=== PATIENT | female | born 1960 | race Caucasian/White ===

== ENCOUNTER 2018-07-14 07:05 | Day surgery (SDC) | payer BC, SELFPAY ==
[2018-07-14 07:53] VITALS: BP 151/91; PULSE 65; RESP 16; TEMP 36.6; O2SAT 100; BMI 37.8
--- NOTE | 2018-07-14 08:00 | COLBX_PTH ---
PATIENT: ADRY HENRY LOC: EN U#:[id number] AGE/SX: 57/F ROOM: RE07/14/[address]: Dr. Dmitry Holden MD : 1960 BED: DIS: 07/14/2018 SPEC #: [id number] RECD: 07/14/18 10:23 STATUS: ANN MARIE KATE #: [id number] ANALILIA: 07/14/18 08:[address]: Dmitry Holden DEPT: SURGICAL PATHOLOGY RECD BY: Hugo Kirkland ENTERED: 07/14/18 10:49 SP TYPE: COLON BX OTHR DR: Dr. Rohini Santos MD Tissues: Sigmoid colon biopsy Procedures: Surgery Specimen Level IV HEADER OPERATION: Colonoscopy PRE-OP DIAGNOSIS: Screening TISSUE SUBMITTED: Polyp of sigmoid colon MICROSCOPIC DIAGNOSIS Sigmoid colon polyp, biopsy: Focal hyperplastic change. AM:felicita 07/15/18 MICROSCOPIC DESCRIPTION Slides are reviewed. GROSS DESCRIPTION Received in fixative is one container labeled with the patient's name and designated polyp of sigmoid colon. The specimen consists of a rader-pink polyp measuring 0.5 x 0.5 x 0.2 cm. Also present in the container is a minute fragment of rader soft tissue measuring 0.1 cm in greatest dimension. The specimen is totally submitted in one cassette. / SJ:felicita 07/14/18 TC:5 CPT: 95038
[2018-07-14 08:25] VITALS: BP 123/78; BP 151/91; PULSE 89; RESP 18; TEMP 36.9; O2SAT 95
--- NOTE | 2018-07-14 08:26 | OP.ENDO_ITS ---
Patient Name: Zhanna Flores Procedure Date: 07/14/2018 8:02 AM Date of : 1960 Age: 57 Procedure: Colonoscopy Indications: Screening for colorectal malignant neoplasm Providers: Dmitry Holden MD Medicines: See the Anesthesia note for documentation of the administered medications Patient Profile: This is a 57 year old female. Refer to note in patient chart for documentation of history and physical. Last Colonoscopy: none. The patient's first colonoscopy is today. Complications: No immediate complications. Procedure: Pre-Anesthesia Assessment: - Prior to the procedure, a History and Physical was performed, and patient medications and allergies were reviewed. The patient's tolerance of previous anesthesia was also reviewed. The risks and benefits of the procedure and the sedation options and risks were discussed with the patient. All questions were answered, and informed consent was obtained. Prior Anticoagulants: The patient has taken no previous anticoagulant or antiplatelet agents. ASA Grade Assessment: II - A patient with mild systemic disease. After reviewing the risks and benefits, the patient was deemed in satisfactory condition to undergo the procedure. After I obtained informed consent, the scope was passed under direct vision. Throughout the procedure, the patient's blood pressure, pulse, and oxygen saturations were monitored continuously. The adult colonoscope was introduced through the anus and advanced to the cecum, identified by appendiceal orifice and ileocecal valve. The colonoscopy was performed with moderate difficulty due to patient coughing. The patient tolerated the procedure fairly well. The quality of the bowel preparation was good. Scope In: 8:08:57 AM Scope Withdrawal Time 0 hours 6 minutes 56 seconds Scope Out: 8:21:09 AM Total Procedure Duration Time 0 hours 12 minutes 12 seconds Findings: A 5 mm polyp was found in the sigmoid colon. The polyp was sessile. The polyp was removed with a hot snare. Resection and retrieval were complete. Multiple small-mouthed diverticula were found in the sigmoid colon and descending colon. The exam was otherwise without abnormality. Impression: - One 5 mm polyp in the sigmoid colon, removed with a hot snare. Resected and retrieved. - Diverticulosis in the sigmoid colon and in the descending colon. - The examination was otherwise normal. Recommendation: - Discharge patient to home. - Resume previous diet. - Continue present medications. - Await pathology results. - Repeat colonoscopy in 3 years for surveillance. - Return to my office in 1 week. Procedure Code(s): --- Professional --- 09312, Colonoscopy, flexible; with removal of tumor(s), polyp(s), or other lesion(s) by snare technique Diagnosis Code(s): --- Professional --- Z12.11, Encounter for screening for malignant neoplasm of colon D12.5, Benign neoplasm of sigmoid colon K57.30, Diverticulosis of large intestine without perforation or abscess without bleeding CPT copyright 2017 [employer]. All rights reserved. The codes documented in this report are preliminary and upon water treatment plant supervisor review may be revised to meet current compliance requirements. MD Dmitry Taylor MD 07/14/2018 8:25:44 AM This report has been signed electronically. Number of Addenda: 0 Note Initiated On: 07/14/2018 8:02 AM
--- NOTE | 2018-07-14 08:26 | PCM.HP.STD ---
Problem List (1) Screen for colon cancer Status: Acute History of Present Illness Date of Admission: 07/14/18 The patient is a 57 year old F who presents for screening colonoscopy Past Medical History Allergies latex Adverse Reaction (Verified 07/14/18 07:33) Rash Smoking Status: Never smoker - *Family History Maternal History Items: No pertinent history Review of Systems Cardiovascular: Denies: Chest Pain, Chest Pressure, Chest Tightness, Palpitations Respiratory: Denies: Cough, Hemoptysis, Shortness of breath at rest, Shortness of breath upon exertion, Wheezing Gastrointestinal: Denies: Abdominal Pain, Constipation, Diarrhea, Hematemesis, Nausea, Melena, Vomiting VTE Information - Inpt Only VTE Present on Admission: No VTE Mechan Device Prophylaxis: None VTE Pharm Prophylaxis ordered?: No Reason prophylaxis not ordered:: Treatment Not Indicated Patient Problems: Active and Suspected Problems Screen for colon cancer (Acute) - Physical Exam Lungs: Clear to auscultation Cardiovascular: Regular rate, Regular Rhythm, No murmurs Abdomen: Bowel Sounds Present, Soft, Non Tender, Non-Distended Vital Signs Temp Pulse Resp BP Pulse Ox 97.8 F 65 16 151/91 H 100 07/14/18 07:53 07/14/18 07:53 07/14/18 07:53 07/14/18 07:53 07/14/18 07:53 Oxygen Delivery Method Room Air Weight: 241 lb 13.553 oz Body Mass Index (BMI) 37.8 Assessment/Plan All Active Problems Screen for colon cancer (Acute) My plan is to perform a colonoscopy.
[2018-07-14 08:30] VITALS: BP 118/74; BP 151/91; PULSE 82; RESP 18; O2SAT 94
[2018-07-14 08:35] VITALS: BP 119/73; BP 151/91; PULSE 88; RESP 18; O2SAT 96
[2018-07-14 08:40] VITALS: BP 119/84; BP 151/91; PULSE 73; RESP 18; TEMP 36.4; O2SAT 100
[2018-07-14 08:52] VITALS: BP 151/91
== END 2018-07-14 09:10 | disposition home or self-care (01) ==
LOC: EN 07:13 → AC 07:13
PROVIDERS: Family Provider Family Medicine; PCP Family Medicine; Referring Provider Surgery; Visit Provider Surgery
PROC: 0DJD8ZZ Inspection of Lower Intestinal Tract, Via Natural or Artificial Opening Endoscopic (ICD-10-PCS; CPT 45378; principal; 2018-07-14 07:55)
DX: Z12.11 Encounter for screening for malignant neoplasm of colon (principal); D12.5 Benign neoplasm of sigmoid colon; K57.30 Diverticulosis of large intestine without perforation or abscess without bleeding
CPT/HCPCS: 45385; 88305; J7120; J2405

== ENCOUNTER 2019-06-15 06:57 | Day surgery (SDC) | payer BC, SELFPAY ==
[2019-05-31 09:27] VITALS: BMI 37.8
--- NOTE | 2019-05-31 10:44 | HP_ITS ---
Intake Vital Signs 05/31/19 Body Mass Index (BMI) 37.8 05/31/19 Height 5 ft 8 in 05/31/19 Weight: 235 lb 05/31/19 Body Mass Index (BMI) 35.7 05/31/19 Blood Pressure 143/90 H 05/31/19 Blood Pressure Location Rt brachial 05/31/19 Blood Pressure Position Sitting 05/31/19 Respiratory Rate 18 05/31/19 Pulse Rate 62 05/31/19 Pulse Source Monitor 05/31/19 Temperature 98.0 F 05/31/19 Temperature Source Oral 05/31/19 Pulse Ox 97 05/31/19 Oxygen Delivery Method room air 05/25/19 Body Mass Index (BMI) 37.8 Intake Visit Reasons: Gastroesophageal reflux disease (GERD) Chief Complaint: GERD Content Strategy Lead Required: No Is patient in pain?: No Allergies latex Adverse Reaction (Verified 05/31/19 09:26) Rash Medications NK 07/29/18 [History Confirmed 05/31/19] Is last menstrual period known: No Post menopausal: Yes Patient : No PFSH Medical History Screen for colon cancer (Acute) GERD (gastroesophageal reflux disease) (Acute) History of hysterectomy (Acute) Surgical History History of (Acute) History of bilateral carpal tunnel release (Acute) History of left knee replacement (Acute) History of tonsillectomy and adenoidectomy (Acute) S/P colonoscopy (Acute ~07/14/18) Family History Sister Asthma Breast cancer Father Bleeding disorder Heart disease Mother Cancer Heart disease Hypertension Social History (Updated 05/31/19 @ 10:44 by Dmitry Holden MD) Smoking Status: Never smoker alcohol intake: never substance use type: does not use HPI HPI HPI: ADRY HENRY, is a 58 F who presents to the office today for HPI HPI Surgical H&P: Yes HPI: ADRY HENRY, is a 58 F who presents to the office today for Evaluation of heartburn. I originally saw her back in July after she underwent a colonoscopy. We discussed the fact that she was having heartburn for many months particularly after eating spicy foods. She took ycbs-[id number] PPIs double dose since then and has had no appreciable change in her reflux of symptoms. The only time that she does not have reflux of symptoms is when she eats a very bland diet and no more than 2 cups at a time. She states that her symptoms are worse when she tries to bend over after she is eaten spicy foods where food regurgitates and starts her coughing up a lot of phlegm. ROS General General: Yes weight change; no appetite, fatigue, colon cancer, breast cancer or weakness HEENT HEENT: No difficulty swallowing, eye injury, eye surgery, swollen glands or hoarseness Endo Endocrine: No thyroid disease, diabetes mellitus, thyroid cancer, Hair loss, heat intolerance or cold intolerance Skin Skin: No rash or changing moles Breast Breast: No left breast lump, right breast lump, nipple discharge, breast pain, abnormal mammogram, abnormal US or breast enlargement Musc Musculoskeletal: No back problems, arthritis, rheumatoid arthritis, gout or joint pain Cardio Cardiovascular: No murmur, pacemaker, heart disease, atrial fibrillation, high blood pressure, heart attack, heart stent, palpitations, shortness of breat with exertion or chest pain Psych Psychiatric: No depression, anxiety or hearing voices Resp Respiratory: No shortness of breath, No sleep apnea, Yes cough, No COPD, No asthma, No emphysema, No wheezing Gastro Gastrointestinal: No abdominal pain, No nausea or vomiting, No diarrhea, No constipation, No blood in stool, Yes acid reflux, No hemorrhoids, No ulcers, No gallbladder problem, No black,tarry stools Hematologic: No blood thinners, No blood disorders, No bleeding, No anemia, No blood clots Neuro Neurologic: No system reviewed and no additional complaints, except as docu, No as per HPI, No abnormal walking, No abnormal hearing, No abnormal movements, No abnormal speech, No behavioral changes, No burning sensations, No confusion, No seizure-like activity, No unsteadiness, No dizziness, No localized weakness, No frequent falls, No headache(s), No lack of coordination, No loss of vision, No memory loss, No numbness, No other visual disturbances, No radiating pain, No restless legs, No sensory deficit, No fainting, No tingling, No tremor(s), No weakness, No other Exam Const General: no acute distress, well developed, well hydrated Orientation: oriented to person, oriented to place, oriented to time [facility] Head: normocephalic, atraumatic Ears: external ears normal Mouth: moist mucous membranes Eyes Sclera: sclerae normal Pupils: normal by confrontation Neck Neck: no lymphadenopathy noted Neck mass: No Thyroid: thyroid normal, symmetrical Chest Chest palpation & inspection: normal inspection of the chest Breast Palpation: No nipple discharge Resp Effort & Inspection: normal respiratory effort Auscultation: clear to auscultation bilaterally Percussion: percussion normal Cardio Rate: regular rate Rhythm: regular rhythm Heart Sounds: no murmurs GI Palpation: soft, no hepatosplenomegaly, no masses, nontender Rectal Exam: other Other: Rectal exam deferred. Extrem General: normal to inspection, no clubbing, cyanosis or edema Assessment & Plan 1. Gastroesophageal reflux disease, esophagitis presence not specified K21.9 Plan I have discussed the above with the patient. I have offered the patient esophagogastroduodenoscopy With 48-hour pH probe for evaluation. I have explained the risks/benefits of the procedure and described the procedure. I have discussed the risks with the patient, including but not limited to: infection, bleeding, perforation of the GI tract requiring emergency surgery, inability to complete the procedure, injury to any internal organs, complications of anesthesia, etc. - the patient understands and agrees to proceed. I have answered all the patient's questions to the patient's satisfaction and the patient has no further questions. The patient has been given instructions for the colon cleansing preparation. Coding Level of Care Code Off vis,est,level 3 Diagnoses Gastroesophageal reflux disease, esophagitis presence not specified K21.9 ??Esophagitis presence: esophagitis presence not specified 05/31/19 1045 <Electronically signed by Dmitry urena MD> Date _ Dmitry Holden MD I have re-examined the patient. There are no clinical changes since date of exam.
[2019-06-15] VITALS (7 sets, daily range): BP systolic 113–135; BP diastolic 76–82; PULSE 70–95; RESP 16–20; TEMP 36.8–37.2; O2SAT 96–100; BMI 36.5
[2019-06-15] MEDS: Lactated Ringers 1,000 ML 100 ML IV (07:45)
--- NOTE | 2019-06-15 08:41 | OP.ENDO_ITS ---
06/15/2019 Rohini Santos Md Re : Upper GI endoscopy procedure for Zhanna Flores Dear Danielle This procedure was performed on Saturday, June 15, 2019. My impressions and recommendations are as follows: Impressions : - Z-line regular, 38 cm from the incisors. - Normal stomach. No specimens collected. - Normal examined duodenum. No specimens collected. - The LEON pH capsule was deployed. Recommendations : - Discharge patient to home. - Resume previous diet. - Continue present medications. - Repeat upper endoscopy (date not yet determined) to evaluate the response to therapy. - Return to my office in 1 week. My findings are described in the full procedure note, which is enclosed. If I can be of further assistance, please feel free to contact me at Doctor phone number(s): , Fax: [phone], Work: . Sincerely, MD Dmitry Taylor MD 06/15/2019 8:40:48 AM This report has been signed electronically.
== END 2019-06-15 09:25 | disposition home or self-care (01) ==
LOC: EN 06:57 → AC 06:58
PROVIDERS: Family Provider Family Medicine; PCP Family Medicine; Referring Provider Surgery; Visit Provider Surgery
PROC: (CPT 43235; principal; 2019-06-15 07:55)
DX: K21.9 Gastro-esophageal reflux disease without esophagitis (principal); Z78.0 Asymptomatic menopausal state; Z90.710 Acquired absence of both cervix and uterus
CPT/HCPCS: 43235; 91035; J7120; J2405

== ENCOUNTER 2019-08-04 07:49 | Day surgery (SDC) | payer BC, SELFPAY ==
--- NOTE | 2019-05-31 10:44 | HP_ITS ---
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 Is patient in pain?: No Allergies latex Adverse Reaction (Verified 05/31/19 09:26) Rash Medications NK 07/29/18 [History Confirmed 05/31/19] Is last menstrual period known: No Post menopausal: Yes Patient : No PFSH Medical History Screen for colon cancer (Acute) GERD (gastroesophageal reflux disease) (Acute) History of hysterectomy (Acute) Surgical History History of (Acute) History of bilateral carpal tunnel release (Acute) History of left knee replacement (Acute) History of tonsillectomy and adenoidectomy (Acute) S/P colonoscopy (Acute ~07/14/18) Family History Sister Asthma Breast cancer Father Bleeding disorder Heart disease Mother Cancer Heart disease Hypertension Social History (Updated 05/31/19 @ 10:44 by Dmitry Holden MD) Smoking Status: Never smoker alcohol intake: never substance use type: does not use HPI HPI HPI: ADRY HENRY, is a 58 F who presents to the office today for HPI HPI Surgical H&P: Yes HPI: ADRY HENRY, is a 58 F who presents to the office today for Evaluation of heartburn. I originally saw her back in July after she underwent a colonoscopy. We discussed the fact that she was having heartburn for many months particularly after eating spicy foods. She took ghwu-[id number]-[id number] PPIs double dose since then and has had no appreciable change in her reflux of symptoms. The only time that she does not have reflux of symptoms is when she eats a very bland diet and no more than 2 cups at a time. She states that her symptoms are worse when she tries to bend over after she is eaten spicy foods where food regurgitates and starts her coughing up a lot of phlegm. ROS General General: Yes weight change; no appetite, fatigue, colon cancer, breast cancer or weakness HEENT HEENT: No difficulty swallowing, eye injury, eye surgery, swollen glands or hoarseness Endo Endocrine: No thyroid disease, diabetes mellitus, thyroid cancer, Hair loss, heat intolerance or cold intolerance Skin Skin: No rash or changing moles Breast Breast: No left breast lump, right breast lump, nipple discharge, breast pain, abnormal mammogram, abnormal US or breast enlargement Musc Musculoskeletal: No back problems, arthritis, rheumatoid arthritis, gout or joint pain Cardio Cardiovascular: No murmur, pacemaker, heart disease, atrial fibrillation, high blood pressure, heart attack, heart stent, palpitations, shortness of breat with exertion or chest pain Psych Psychiatric: No depression, anxiety or hearing voices Resp Respiratory: No shortness of breath, No sleep apnea, Yes cough, No COPD, No asthma, No emphysema, No wheezing Gastro Gastrointestinal: No abdominal pain, No nausea or vomiting, No diarrhea, No constipation, No blood in stool, Yes acid reflux, No hemorrhoids, No ulcers, No gallbladder problem, No black,tarry stools Hematologic: No blood thinners, No blood disorders, No bleeding, No anemia, No blood clots Neuro Neurologic: No system reviewed and no additional complaints, except as docu, No as per HPI, No abnormal walking, No abnormal hearing, No abnormal movements, No abnormal speech, No behavioral changes, No burning sensations, No confusion, No seizure-like activity, No unsteadiness, No dizziness, No localized weakness, No frequent falls, No headache(s), No lack of coordination, No loss of vision, No memory loss, No numbness, No other visual disturbances, No radiating pain, No restless legs, No sensory deficit, No fainting, No tingling, No tremor(s), No weakness, No other Exam Const General: no acute distress, well developed, well hydrated Orientation: oriented to person, oriented to place, oriented to time [facility] Head: normocephalic, atraumatic Ears: external ears normal Mouth: moist mucous membranes Eyes Sclera: sclerae normal Pupils: normal by confrontation Neck Neck: no lymphadenopathy noted Neck mass: No Thyroid: thyroid normal, symmetrical Chest Chest palpation & inspection: normal inspection of the chest Breast Palpation: No nipple discharge Resp Effort & Inspection: normal respiratory effort Auscultation: clear to auscultation bilaterally Percussion: percussion normal Cardio Rate: regular rate Rhythm: regular rhythm Heart Sounds: no murmurs GI Palpation: soft, no hepatosplenomegaly, no masses, nontender Rectal Exam: other Other: Rectal exam deferred. Extrem General: normal to inspection, no clubbing, cyanosis or edema Assessment & Plan 1. Gastroesophageal reflux disease, esophagitis presence not specified K21.9 Plan I have discussed the above with the patient. I have offered the patient esophagogastroduodenoscopy With 48-hour pH probe for evaluation. I have explained the risks/benefits of the procedure and described the procedure. I have discussed the risks with the patient, including but not limited to: infection, bleeding, perforation of the GI tract requiring emergency surgery, inability to complete the procedure, injury to any internal organs, complications of anesthesia, etc. - the patient understands and agrees to proceed. I have answered all the patient's questions to the patient's satisfaction and the patient has no further questions. The patient has been given instructions for the colon cleansing preparation. Coding Level of Care Code Off vis,est,level 3 Diagnoses Gastroesophageal reflux disease, esophagitis presence not specified K21.9 ??Esophagitis presence: esophagitis presence not specified 05/31/19 1045 <Electronically signed by Dmitry urena MD> Date _ Dmitry Holden MD
[2019-06-15 07:29] VITALS: BMI 36.5
[2019-08-04 08:13] VITALS: BP 143/84; PULSE 72; RESP 16; TEMP 36.6; O2SAT 100
== END 2019-08-04 08:46 | disposition home or self-care (01) ==
LOC: EN 07:49
PROVIDERS: Surgery; Family Provider Family Medicine; PCP Family Medicine; Referring Provider Family Medicine; Visit Provider Surgery
PROC: F00ZJWZ Instrumental Swallowing and Oral Function Assessment using Swallowing Equipment (ICD-10-PCS; CPT 43235; principal; 2019-08-04 07:55)
DX: K21.0 Gastro-esophageal reflux disease with esophagitis (principal)
CPT/HCPCS: 91010; 91013

== ENCOUNTER 2020-02-28 09:55 | Observation (INO) | payer BC, SELFPAY ==
[2019-10-06 07:57] VITALS: BMI 34.4
--- NOTE | 2020-02-21 01:27 | HP_ITS ---
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 Required: No Is patient in pain?: No Allergies latex Adverse Reaction (Verified 02/21/20 12:59) Rash Medications esomeprazole magnesium 20 mg capsule,delayed release 20 mg PO BID cap 02/21/20 [History Confirmed 02/21/20] PFS Medical History Gastroesophageal reflux disease due to diaphragmatic hernia (Acute) Screen for colon cancer (Acute) GERD (gastroesophageal reflux disease) (Acute) Surgical History History of (Acute) History of bilateral carpal tunnel release (Acute) History of hysterectomy (Acute) History of left knee replacement (Acute) History of tonsillectomy and adenoidectomy (Acute) S/P colonoscopy (Acute ~07/14/18) history EGD with 48 hour PH probe (Acute ~06/15/19) Family History Sister Asthma Breast cancer Father Bleeding disorder Heart disease Mother Cancer Heart disease Hypertension Social History (Updated 02/21/20 @ 13:27 by Jojo Brantley PA-C) Smoking Status: Never smoker alcohol intake: never substance use type: does not use HPI HPI HPI: ZHANNA HENRY is a 59 F who presents to the office today for HPI HPI Surgical H&P: Yes HPI: ZHANNA HENRY is a 59 F who presents to the office today for an update history and physical. Patient denies fever, cough, shortness of breath. She denies chest pain. She has never been evaluated by a deaf teacher. She denies previous complications or side effects from anesthesia. Patient denies recent changes in health since her last visit visit with our office. She notes previous and laparoscopic hysterectomy as far as abdominal surgeries. Patient's previous history per Dr. Hernandez: ZHANNA HENRY, is a 59 F who presents to the office today for Surgical consultation regarding intractable gastroesophageal reflux disease and the need for repair Of a hiatal hernia with reflux procedure. The patient is referred by . The patient was seen below with the following concerns. She has had significant gastroesophageal reflux disease for at least 2 years. She has not had any abdominal surgery other than 2 prior C-sections. She has undergone upper endoscopy and pH probe and esophageal manometry.It is of note that the DeMeester score was 23.8. The manometry showed 10 swallows analyzed. The patient had several swallows with incomplete bolus clearance. 20% were weak. 20% were ineffective. LES basal tone and relaxing tension tone were normal HPI: ZHANNA HENRY, is a 58 F who presents to the office today for Evaluation of heartburn. I originally saw her back in July after she underwent a colonoscopy. We discussed the fact that she was having heartburn for many months particularly after eating spicy foods. She took oypd-bxu-ohqpgvz PPIs double dose since then and has had no appreciable change in her reflux of symptoms. The only time that she does not have reflux of symptoms is when she eats a very bland diet and no more than 2 cups at a time. [facility] Medical Records Department [address] [place] [id number] Operative Report - Endoscopy MR#: [id number] Name:ZHANNA HENRY [facility] #:[id number] : [id number]: Dmitry Holden MD PCP:Rohini Santos MD Status:[place] [facility] [place]15/[place] Rohini Santos Md Re : Upper GI endoscopy procedure for hZanna Henry Dear Danielle This procedure was performed on Thursday, June 15, 2019. My impressions and recommendations are as follows: Impressions : - Z-line regular, 38 cm from the incisors. - Normal stomach. No specimens collected. - Normal examined duodenum. No specimens collected. - The LEON pH capsule was deployed. Recommendations : - Discharge patient to home. - Resume previous diet. - Continue present medications. - Repeat upper endoscopy (date not yet determined) to evaluate the response to therapy. - Return to my office in 1 week. My findings are described in the full procedure note, which is enclosed. If I can be of further assistance, please feel free to contact me at Doctor phone number(s): , Fax: [phone], Work: . Sincerely, MD Dmitry Taylor MD 06/15/2019 8:40:48 AM This report has been signed electronically. 06/15/19 0841 Date Dmitry Holden MD ROS General General: Yes weight change; no appetite, fatigue, colon cancer, breast cancer or weakness HEENT HEENT: No difficulty swallowing, eye injury, eye surgery, swollen glands or hoarseness Endo Endocrine: No thyroid disease, diabetes mellitus, thyroid cancer, Hair loss, heat intolerance or cold intolerance Skin Skin: No rash or changing moles Breast Breast: No left breast lump, right breast lump, nipple discharge, breast pain, abnormal mammogram, abnormal US or breast enlargement Musc Musculoskeletal: No back problems, arthritis, rheumatoid arthritis, gout or joint pain Cardio Cardiovascular: No murmur, pacemaker, heart disease, atrial fibrillation, high blood pressure, heart attack, heart stent, palpitations, shortness of breat with exertion or chest pain Psych Psychiatric: No depression, anxiety or hearing voices Resp Respiratory: No shortness of breath, No sleep apnea, Yes cough, No COPD, No asthma, No emphysema, No wheezing Gastro Gastrointestinal: No abdominal pain, No nausea or vomiting, No diarrhea, No constipation, No blood in stool, Yes acid reflux, No hemorrhoids, No ulcers, No gallbladder problem, No black,tarry stools Hematologic: No blood thinners, No blood disorders, No bleeding, No anemia, No blood clots Neuro Neurologic: No weakness Exam Const General: cooperative, healthy appearing, comfortable, no acute distress HENMI Head: normal to inspection Eyes General: appearance normal, both eyes and all related structures Neck Neck: normal visual inspection Neck mass: No Chest Breast Palpation: No nipple discharge Resp Effort & Inspection: normal respiratory effort Auscultation: clear to auscultation bilaterally Cardio Rate: regular rate Rhythm: regular rhythm Heart Sounds: no murmurs GI Inspection: normal to inspection Palpation: soft Auscultation: normal bowel sounds Skin General: no rashes or lesions noted Neuro General: no focal motor deficits, CN's II-XI intact bilaterally Extrem General: normal to inspection Psych Appearance: grossly normal Affect: normal affect Assessment & Plan Problems 1. Gastroesophageal reflux disease due to diaphragmatic hernia K21.9; K44.[address] Hernandez will plan to perform a laparoscopic toupee procedure. Procedure details, risks and benefits were reviewed with the patient. Patient has had the opportunity to ask and have questions answered. Patient was also provided post- operative instructions and post-operative diet instructions. Instructions were reviewed with the patient. PAT contacted the patient today with testing and COVID testing instructions. Coding Level of Care Code No Charge Diagnoses Gastroesophageal reflux disease due to diaphragmatic hernia K21.9; K44.9 Comment Update H&P 02/21/20 9268 <Electronically signed by Jojo briggs PA-C> Date _ Jojo Brantley PA-C
[2020-02-21 13:01] VITALS: BMI 36.5
--- NOTE | 2020-02-21 13:54 | EKG12_ITS ---
Test Reason : PRE-OP Blood Pressure : / mmHG Vent. Rate : 068 BPM Atrial Rate : 068 BPM P-R Int : 174 ms QRS Dur : 092 ms QT Int : 440 ms P-R-T Axes : 026 012 083 degrees QTc Int : 467 ms Normal sinus rhythm Low voltage QRS (Limb Leads) Poor R wave progression Confirmed by EARLENE FISCHER, BIJAN ([id number]), editor managing newspaper SALVADOR GRAY ([id number]) on 02/22/2020 1:07:22 PM Referred By: Priyank Hernandez Confirmed By:BIJAN HENAO MD
[2020-02-21 14:16] LABS: Hematocrit 38.2 % (37-47); Hemoglobin 12.7 g/dL (12.0-15.0); Mean Corp Hgb Conc 33.2 g/dL (32-36); Mean Corpuscular Hgb 29.9 pg (27.0-32.0); Mean Corpuscular Volume 89.9 fL (81-99); Mean Platelet Vol. 12.8 fl (6.2-12.0); Platelet Count 268 K/mm3 (150-450); RBC Distribution Width CV 12.7 % (11.6-14.6); RBC Distribution Width SD 41.5 fl (35.1-43.9); Red Blood Count 4.25 M/mm3 (4.2-5.4); White Blood Count 7.5 K/mm3 (4.4-11.0)
[2020-02-21 15:13] LABS: Anion Gap 5 (5-15); BUN 20 mg/dL (7-18); BUN/Creat Ratio 21.4 RATIO (10-20); Chloride 109 mmol/L (98-107); Creatinine, Serum 0.93 mg/dL (0.55-1.02); EST Glomerular Filtration Rate 65 mL/min (>60); Est Glom Filt Rate - Afr Amer 79 mL/min (>60); Glucose 110 mg/dL (74-106); Potassium 4.1 mmol/L (3.5-5.1); Sodium Level 139 mmol/L (136-145)
[2020-02-28] VITALS (12 sets, daily range): BP systolic 118–135; BP diastolic 65–85; PULSE 53–81; RESP 15–18; TEMP 36.2–37.8; O2SAT 93–100; BMI 37.5
[2020-02-28] MEDS: Lactated Ringers 1,000 ML 100 ML IV ×2 (05:59→09:40)
--- NOTE | 2020-02-28 06:35 | PCM.HP.BLA ---
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 Required: No Is patient in pain?: No Allergies latex Adverse Reaction (Verified 02/21/20 12:59) Rash Medications esomeprazole magnesium 20 mg capsule,delayed release 20 mg PO BID cap 02/21/20 [History Confirmed 02/21/20] [facility] Medical History Gastroesophageal reflux disease due to diaphragmatic hernia (Acute) Screen for colon cancer (Acute) GERD (gastroesophageal reflux disease) (Acute) Surgical History History of (Acute) History of bilateral carpal tunnel release (Acute) History of hysterectomy (Acute) History of left knee replacement (Acute) History of tonsillectomy and adenoidectomy (Acute) S/P colonoscopy (Acute ~07/14/18) history EGD with 48 hour PH probe (Acute ~06/15/19) Family History Sister Asthma Breast cancer Father Bleeding disorder Heart disease Mother Cancer Heart disease Hypertension Social History (Updated 02/21/20 @ 13:27 by Jojo Brantley PA-C) Smoking Status: Never smoker alcohol intake: never substance use type: does not use HPI HPI HPI: ZHANNA HENRY, is a 59 F who presents to the office today for HPI HPI Surgical H&P: Yes HPI: ZHANNA HENRY, is a 59 F who presents to the office today for an update history and physical. Patient denies fever, cough, shortness of breath. She denies chest pain. She has never been evaluated by a ethylene plant helper. She denies previous complications or side effects from anesthesia. Patient denies recent changes in health since her last visit visit with our office. She notes previous and laparoscopic hysterectomy as far as abdominal surgeries. Patient's previous history per Dr. Hernandez: ZHANNA HENRY, is a 59 F who presents to the office today for Surgical consultation regarding intractable gastroesophageal reflux disease and the need for repair Of a hiatal hernia with reflux procedure. The patient is referred by . The patient was seen below with the following concerns. She has had significant gastroesophageal reflux disease for at least 2 years. She has not had any abdominal surgery other than 2 prior C-sections. She has undergone upper endoscopy and pH probe and esophageal manometry.It is of note that the DeMeester score was 23.8. The manometry showed 10 swallows analyzed. The patient had several swallows with incomplete bolus clearance. 20% were weak. 20% were ineffective. LES basal tone and relaxing tension tone were normal HPI: ZHANNA HENRY, is a 58 F who presents to the office today for Evaluation of heartburn. I originally saw her back in July after she underwent a colonoscopy. We discussed the fact that she was having heartburn for many months particularly after eating spicy foods. She took demm-slf-auwqzhn PPIs double dose since then and has had no appreciable change in her reflux of symptoms. The only time that she does not have reflux of symptoms is when she eats a very bland diet and no more than 2 cups at a time. [facility] Medical Records Department [address] [place] [address] Operative Report - Endoscopy MR#: [id number] Name:ZHANNA HENRY CRep #:[id number] : [id number]: Dmitry Holden MD PCP:Rohini Santos MD Status:REG [facility] [place] 06/15/2019 Rohini Santos Md Re : Upper GI endoscopy procedure for Zhanna Henry Dear Danielle This procedure was performed on Thursday, June 15, 2019. My impressions and recommendations are as follows: Impressions : - Z-line regular, 38 cm from the incisors. - Normal stomach. No specimens collected. - Normal examined duodenum. No specimens collected. - The LEON pH capsule was deployed. Recommendations : - Discharge patient to home. - Resume previous diet. - Continue present medications. - Repeat upper endoscopy (date not yet determined) to evaluate the response to therapy. - Return to my office in 1 week. My findings are described in the full procedure note, which is enclosed. If I can be of further assistance, please feel free to contact me at Doctor phone number(s): , Fax: [phone], Work: . Sincerely, MD Dmitry Taylor MD 06/15/2019 8:40:48 AM This report has been signed electronically. 06/15/19 0841 Date Dmitry Holden MD ROS General General: Yes weight change; no appetite, fatigue, colon cancer, breast cancer or weakness HEENT HEENT: No difficulty swallowing, eye injury, eye surgery, swollen glands or hoarseness Endo Endocrine: No thyroid disease, diabetes mellitus, thyroid cancer, Hair loss, heat intolerance or cold intolerance Skin Skin: No rash or changing moles Breast Breast: No left breast lump, right breast lump, nipple discharge, breast pain, abnormal mammogram, abnormal US or breast enlargement Musc Musculoskeletal: No back problems, arthritis, rheumatoid arthritis, gout or joint pain Cardio Cardiovascular: No murmur, pacemaker, heart disease, atrial fibrillation, high blood pressure, heart attack, heart stent, palpitations, shortness of breat with exertion or chest pain Psych Psychiatric: No depression, anxiety or hearing voices Resp Respiratory: No shortness of breath, No sleep apnea, Yes cough, No COPD, No asthma, No emphysema, No wheezing Gastro Gastrointestinal: No abdominal pain, No nausea or vomiting, No diarrhea, No constipation, No blood in stool, Yes acid reflux, No hemorrhoids, No ulcers, No gallbladder problem, No black,tarry stools Hematologic: No blood thinners, No blood disorders, No bleeding, No anemia, No blood clots Neuro Neurologic: No weakness Exam Const General: cooperative, healthy appearing, comfortable, no acute distress HENMT Head: normal to inspection Eyes General: appearance normal, both eyes and all related structures Neck Neck: normal visual inspection Neck mass: No Chest Breast Palpation: No nipple discharge Resp Effort & Inspection: normal respiratory effort Auscultation: clear to auscultation bilaterally Cardio Rate: regular rate Rhythm: regular rhythm Heart Sounds: no murmurs GI Inspection: normal to inspection Palpation: soft Auscultation: normal bowel sounds Skin General: no rashes or lesions noted Neuro General: no focal motor deficits, CN's II-XI intact bilaterally Extrem General: normal to inspection Psych Appearance: grossly normal Affect: normal affect Assessment & Plan Problems 1. Gastroesophageal reflux disease due to diaphragmatic hernia K21.9; K44.[address] Hernandez will plan to perform a laparoscopic toupee procedure. Procedure details, risks and benefits were reviewed with the patient. Patient has had the opportunity to ask and have questions answered. Patient was also provided post-operative instructions and post-operative diet instructions. Instructions were reviewed with the patient. PAT contacted the patient today with testing and COVID testing instructions. Coding Level of Care Code No Charge Diagnoses Gastroesophageal reflux disease due to diaphragmatic hernia K21.9; K44.9 Comment Update H&P 02/21/20 2520 <Electronically signed by Jojo Brantley PA-C> Date Jojo Brantley PA-C I have re-examined the patient. There are no clinical changes since date of exam. Procedure Criteria Procedure Type: Elective COVID Risk Discussion: The surgeon/proceduralist and patient have discussed in detail the risk of exposure to and/or potential harm posed by the COVID-19 virus with having a surgery/procedure at this time versus the risk of delaying the surgery/procedure. It is not possible to know either the risk of delaying the surgery or procedure or chance of getting an infection with perfect accuracy, but a joint decision was made between the patient and the surgeon/proceduralist to proceed at this time with the scheduled surgery/procedure as indicated on the consent form.
--- NOTE | 2020-02-28 06:40 | DCINST_ITS ---
Discharge Diet: - - See detailed postoperative instructions regarding diet Additional Instructions: Please refer to the detailed postoperative instructions and diet list provided from my office. Allergies/Adverse Reactions: Allergies latex Adverse Reaction (Verified 02/28/20 05:45) Rash Medications to take at Discharge esomeprazole magnesium 20 mg capsule,delayed release 20 mg PO BID cap 02/21/20 Primary Care Physician: Rohini Santos MD [Primary Care Provider] - Test Results: Test results from this visit will be discussed in further detail at your follow- up appointment, if applicable. Please Follow Up With: Priyank Hernandez MD - [phone] When: Call to make an appointment to be seen in about 10 days.
[2020-02-28] MEDS: Cefazolin 2 GM in 0.9% Normal Saline 100 ML IV (07:13)
[2020-02-28] MEDS: Bupivacaine Mpf 0.5% 30 ML VIAL (07:48)
--- NOTE | 2020-02-28 10:00 | PCM.OPRPT ---
Problem List (1) Gastroesophageal reflux disease due to diaphragmatic hernia Status: Acute Report of Operation Date of Procedure: 02/28/20 Pre-Operative Diagnosis: Intractable gastroesophageal reflux disease Post-Operative Diagnosis: Same Surgery/Procedure Performed:: Laparoscopic hiatal herniorrhaphy with toupet procedure Description of Surgical Findings:: Timeout and informed consent was obtained. 59-year-old female was taken to the operating place upon the table underwent general endotracheal intubation anesthesia. Ancef 2 g were given intravenously preoperatively. She was placed in a low lithotomy position. Careful buttock padding was performed. Left arm was gently tucked the right arm was on an armboard. The abdomen sterilely prepped and draped. 0.5% Marcaine was used as a local anesthetic. Throughout the procedure total 30 cc was used. Sees skin sites were pre-anesthetized. Superior and slightly in the right upper quadrant from the umbilicus I used a Visiport technology to gain access to the abdomen. Careful insufflation was performed there was no evidence of any trocar injuries. 10 when her port was placed to the left of the umbilicus 2 more 5 mm ports were placed in the left lateral upper quadrant. The patient then was placed in reverse Trendelenburg position. Is of additional note that she was on a beanbag for support. The epiphrenic ligament was incised the right trent [place] carefully identified blunt dissection and harmonic scalpel dissection was performed for hemostasis. The gastrics of the apical fundus of the stomach were transected using harmonic scalpel. Complete hemostasis was intact. This allowed me to rotate the fundus of the stomach anteriorly and dissected on the left trent getting complete access around the EG junction. I placed a Mike drain to facilitate with this mobility. The posterior vagus secured with the esophagus. I then dissected circumferentially around the esophagus proximally 6 cm into the mediastinum. Good release in good mobilization was quite achieved. The EG junction now approximately 4 cm if not greater within the abdomen. I used 0 Ethibond sutures with Dacron pledgets and approximated the crura of the stomach. The 8 bougie was used to correctly sized the diaphragmatic repair. I then utilized the posterior aspect of the stomach wrapped around at the EG junction I secured the posterior aspect stomach to the diaphragm with a 0 Ethibond and pledgeted sutures. Good positional lie was achieved. I then performed the toupet Priyank Hernandez M.D., F.A.C.S. with 2-0 Ethibond. 6. The apical portion of the esophagus to the diaphragm and then to the wrap portion of the stomach. Secured that not and then a running fashion approximated the wrap portion the stomach to the anterior lateral aspect of the esophagus at approximately the 10 o'clock position. This wrap extended for approximately 2 and half centimeters. Then I measured the left aspect of the stomach to assure that it would not be too tight behind the esophagus tested several areas and then put a suture in the stomach that then went through the diaphragm and then through the esophagus this also was 2-0 Ethibond secured that. I felt that I had a nice position at approximately 2 o'clock position on the esophagus and then with a running suture for approximately 2-1/2 cm secured that wrap portion of the stomach to the esophagus. I then tied that off. On inspection it appeared to have a very nice posterior wrap. I then did upper endoscopy which will be transcribed observation. The upper endoscopy demonstrated an excellent wrap and photographs were obtained. Air was insufflated during the upper endoscopy there was no evidence of any leak. I aspirated excess fluid and air from the abdomen. I did place a piece of fibular at the splenic area earlier in the procedure is simply to assure hemostasis. I carefully reinspected that area and that area was nicely hemostatic. Blood loss throughout the procedure but minimal. Attending report site I closed with a 0 Vicryl using a grainy needle in a oouafr-pr-ubsnh fashion. Trochars removed with antiviral valve protection. The abdomen was deflated of the CO2. Skin edges were approximated up to 4 Monocryl subdermal stitches. Steri-Strips Telfa OpSite dressings applied. Sponge and instrument and needle counts were reported to the surgeon to be correct. Specimens none. Drains none. Blood loss minimal. Priyank Hernandez M.D., F.A.C.S. Type of Anesthesia:: General Anesthesiologist: William Ramirez
[2020-02-28] MEDS: Lactated Ringers 1,000 ML 60 ML IV (11:12)
--- NOTE | 2020-02-28 16:32 | PCM.PN.BLA ---
Progress Note Patient is doing very well. Notes some minimal left shoulder tip pain and some slight left upper quadrant pain. No nausea. She has been able to ambulate. I will initiate clear liquids. Continue care as indicated. Priyank Hernandez M.D., F.A.C.S. STROKE Vital Signs/Narrative: Vital Signs Temp Pulse Resp BP Pulse Ox 02/28/20 16:23 98.0 F 74 16 130/65 H 96 02/28/20 14:21 98.6 F 79 18 127/70 H 93
[2020-02-28] MEDS: HYDROcodone Bitartrate/Apap 5/325 Tablet PO (21:08)
[2020-02-28] MEDS: Pantoprazole Sodium 20 MG Tablet PO (21:08)
[2020-02-29 00:11] VITALS: BP 144/80; PULSE 70; RESP 16; TEMP 36.9; O2SAT 98
[2020-02-29 04:10] VITALS: BP 127/77; PULSE 71; RESP 16; TEMP 36.7; O2SAT 99
--- NOTE | 2020-02-29 06:14 | PCM.PN.SRG ---
Subjective: Patient is comfortable and performing extraordinarily well. She is not having any difficulties with clear liquids. Positive flatus - Physical Exam Vitals/I&O's: Vital Signs Temp Pulse Resp BP Pulse Ox 98.1 F 71 16 127/77 H 99 02/29/20 04:10 02/29/20 04:10 02/29/20 04:10 02/29/20 04:10 02/29/20 04:10 Oxygen Flow Rate (L/min) 2 Oxygen Delivery Method Room Air Weight: 243 lb Body Mass Index (BMI) 37.5 Intake and Output for Last 24 Hours 02/27/20 02/28/20 02/29/20 23:59 23:59 23:59 Intake Total 2886 / 2886 Balance 2886 / 2886 General: Alert, Oriented x3, Cooperative, No apparent distress Abdomen: Soft, Non Tender, - - Dressings are clean and dry Current Medications Acetaminophen (Tylenol) 650 mg PO Q6H PRN PRN PRN Reason: Pain Score 1-10/10 Hydrocodone Bitart/Acetaminophen ([place] 5mg-325mg) 1 - 2 tablet PO Q6H PRN PRN PRN Reason: Pain Score 1-5/10 Last Admin: 02/28/20 21:08 Dose: 1 tablet Documented by: Enoxaparin Sodium (Lovenox) 40 mg SC DAILY@0800 [facility] Morphine Sulfate () 2 - 4 mg IV Q1H PRN PRN PRN Reason: Pain Score 1-10/10 Morphine Sulfate () 2 - 4 mg IV Q1H PRN PRN PRN Reason: Pain Score 1-10/10 Ondansetron HCl (Zofran) 4 mg IV Q8H PRN PRN PRN Reason: Nausea Pantoprazole Sodium (Protonix) 20 mg PO BID [facility] Last Admin: 02/28/20 21:08 Dose: 20 mg Documented by: Sodium Chloride () 10 - 40 ml IV UD PRN PRN Reason: SALINE FLUSH Medical Necessity - Tobacco Use Smoking Status: Never smoker Tobacco Use: Non-smoker Assessment/Plan All Active Problems (Last Reviewed 02/21/20 @ 12:59 by Christy Ramos) Gastroesophageal reflux disease due to diaphragmatic hernia (Acute) Screen for colon cancer (Acute) Excellent progress. Patient ready for discharge. Activity and dietary instructions extensively provided in descriptive information. Office follow-up approximately 10 days. Priyank Hernandez M.D., F.A.C.S.
--- NOTE | 2020-02-29 06:16 | DS.PCM_ITS ---
Discharge Date and Diagnosis Date of Admission: 02/28/20 Date of Discharge: 02/29/20 - Primary Discharge Diagnosis Acute Problems: Intractable gastroesophageal reflux disease with hiatal hernia Hospital Course and Treatment Operations: - - Laparoscopic repair of hiatal hernia with toupet procedure and completion esophagogastroduodenoscopy Summary of Care Provided: The patient is a 59 year old F who has intractable gastroesophageal reflux disease and hiatal hernia. She had some esophageal dysmotility with some weaker incomplete swallows. She underwent a laparoscopic repair of her hiatal hernia and a laparoscopic toupet procedure.. The procedure went without complication. She had an unremarkable postoperative course. By the following morning she was tolerating a liquid diet. She would be discharged on her admission proton pump inhibitor. No additional medications added. She will have office follow-up in approximately 10 days. Priyank Hernandez M.D., F.A.C.S. - Physical Exam Vitals/I&O's: Vital Signs Temp Pulse Resp BP Pulse Ox 98.1 F 71 16 127/77 H 99 02/29/20 04:10 02/29/20 04:10 02/29/20 04:10 02/29/20 04:10 02/29/20 04:10 Oxygen Flow Rate (L/min) 2 Oxygen Delivery Method Room Air Weight: 243 lb Body Mass Index (BMI) 37.5 Intake and Output for Last 24 Hours 02/27/20 02/28/20 02/29/20 23:59 23:59 23:59 Intake Total 2886 / 2886 Balance 2886 / 2886 Current Medications Acetaminophen (Tylenol) 650 mg PO Q6H PRN PRN PRN Reason: Pain Score 1-10/10 Hydrocodone Bitart/Acetaminophen ([place] 5mg-325mg) 1 - 2 tablet PO Q6H PRN PRN PRN Reason: Pain Score 1-5/10 Last Admin: 02/28/20 21:08 Dose: 1 tablet Documented by: Enoxaparin Sodium (Lovenox) 40 mg SC DAILY@0800 TRINA Morphine Sulfate () 2 - 4 mg IV Q1H PRN PRN PRN Reason: Pain Score 1-10/10 Morphine Sulfate () 2 - 4 mg IV Q1H PRN PRN PRN Reason: Pain Score 1-10/10 Ondansetron HCl (Zofran) 4 mg IV Q8H PRN PRN PRN Reason: Nausea Pantoprazole Sodium (Protonix) 20 mg PO BID TRINA Last Admin: 02/28/20 21:08 Dose: 20 mg Documented by: Sodium Chloride () 10 - 40 ml IV UD PRN PRN Reason: SALINE FLUSH Discharge Diet: - - See detailed postoperative instructions regarding diet Home Medications: Medications to take at Discharge esomeprazole magnesium 20 mg capsule,delayed release 20 mg PO BID cap 02/21/20 Primary Care Physician: Rohini Santos MD [Primary Care Provider] - Please Follow Up With: Priyank Hernandez MD - [phone] When: Call to make an appointment to be seen in about 10 days. Additional Instructions: Please refer to the detailed postoperative instructions and diet list provided from my office. Medical Necessity - Tobacco Use Smoking Status: Never smoker Tobacco Use: Non-smoker Meaningful Use Info Meaningful Use Diagnoses (Choose all that apply): None applicable
[2020-02-29] MEDS: HYDROcodone Bitartrate/Apap 5/325 Tablet PO (07:51)
[2020-02-29] MEDS: Enoxaparin 40 MG/0.4 ML Syringe SC (07:53)
[2020-02-29] MEDS: Pantoprazole Sodium 20 MG Tablet PO (09:56)
[2020-02-29 10:00] VITALS: BP 117/79; PULSE 87; RESP 18; TEMP 36.7; O2SAT 100
== END 2020-02-29 10:04 | disposition home or self-care (01) ==
LOC: SDC 10:48 → MS3 10:48
PROVIDERS: Anesthesiology; Admitting Provider Surgery; PCP Family Medicine; Referring Provider Surgery; Visit Provider Surgery
PROC: (CPT 43325; principal; 2020-02-28 07:10)
DX: K44.9 Diaphragmatic hernia without obstruction or gangrene (principal); K21.9 Gastro-esophageal reflux disease without esophagitis; Z11.59 Encounter for screening for other viral diseases
CPT/HCPCS: 00790; 43281; 36415; 80048; 85027; 87635; 93005; 96372; 99218; 99251; G2023; J7120; G0378; G0379; G0463; U0003